=== PATIENT | female | born 1930 | race Caucasian/White ===

== ENCOUNTER 2016-09-30 13:16 | Emergency (ER) | payer OTHER, BC ==
[~2016-09-30] VITALS: Ht 162.6 cm; Wt 71.8 kg
[~2016-09-30 13:16] MED LIST: ACID REDUCER150 MG PO; ADULT LOW DOSE81 M1 PO; AMARYL2 MG PO; Ascorbic Acid,Ester- PO; BONIVA150 MG PO; CALCIUM MAGNES1 EACH PO; CATAPRES0.1 MG PO; COLACE100 MG PO; Colace PO; DEXTROSE 50%50 ML IV; DIOVAN40 MG PO; DIOVAN80 MG PO; DOCUSATE SODIU100 MG PO; Dulcolax PR; ECOTRIN325 MG PO; Ecotrin PO; FLEXERIL5 MG PO; FORTAMET500 M1 PO; Folvite PO; GLUCAGEN1 MG IM/SC; GLUCOPHAGE500 MG PO; Heparin Sodium SC; KEFLEX500 MG PO; LIDODERM 5% P1 PATCH TD; LOPRESSOR25 MG PO; Levaquin PO; MINTOX SUSPENS355 ML PO; MIRALAX255 GM PO; Milk Of Magnesia,MOM PO; NORVASC10 MG PO; NOVOLOG PE100 UNITS/ SC; ONGLYZA2.5 MG PO; Oyst-Cal D, Oscal W/ PO; PAXIL20 MG PO; PAXIL30 MG PO; PERCOCET 5/31 TABLET PO; PERIDEX1 ML MM; PLAVIX75 MG PO; PRESERVISION S1 EACH PO; PROMETHAZINE HC25 M1 PO; PROTONIX40 MG PO; PROVENTIL,2.5 MG/3 M IH; Paxil PO; ROBITUSSIN AC,T10 ML PO; ROBITUSSIN DM118 ML PO; SIMVASTATIN10 MG PO; SIMVASTATIN40 M1 PO; SINGULAIR10 MG PO; SORE THROAT SP177 M1 MM; THERAGRAN1 TABLET PO; TRAMADOL HCL50 MG PO; TYLENOL EXTRA500 MG PO; TYLENOL REGULA325 MG PO; TYLENOL WITH C1 EACH PO; Tylenol Regular Stre PO; VITAMIN D31000 UNIT PO; Zocor PO
[2016-09-30 14:20] LABS: ADD MIUA? YES; BILIRUBIN NEGATIVE; BLOOD NEGATIVE; COLOR YELLOW ((YELLOW)); GLUCOSE (STRIP) NEGATIVE; KETONES NEGATIVE; LEUKOCYTES TRACE; NITRITE NEGATIVE; PROTEIN (STRIP) 30; SPECIFIC GRAVITY 1.021 (1.000-1.030); UROBILINOGEN 0.2 MG/DL (0.2-1.0)
[2016-09-30 14:21] LABS: HEMATOCRIT 36.2 % (36.0-46.0); MCH 33.7 PG (29.0-34.0); MCV 99.2 FL (83-99); MEAN PLAT.VOLUME 9.4 uM^3 (9.5-12.4); PLATELET COUNT 207 K/uL (156-360); RBC DIS.WIDTH-CV 13.4 % (11.8-14.6); RBC DIS.WIDTH-SD 46.4 % (39-53); RED BLOOD COUNT 3.65 M/uL (3.80-5.20); WHITE BLOOD COUNT 6.5 K/uL (4.1-10.2)
[2016-09-30 14:29] LABS: CHLORIDE 108 mEq/L (99-109); POTASSIUM 5.2 mEq/L (3.7-5.4); SODIUM 141 mEq/L (136-147)
[2016-09-30 14:30] LABS: GLUCOSE 157 mg/dL (70-99)
[2016-09-30 14:32] LABS: ANION GAP 6 MEQ/L (2-14)
[2016-09-30 14:34] LABS: GFR ESTIMATE (CALCULATED) 50 mL/min/
[2016-09-30 14:35] LABS: UREA NITROGEN (BUN) 24 mg/dL (9-23)
[2016-09-30 14:40] LABS: BACTERIA RARE /HPF; CASTS NONE SEEN /LPF; CRYSTALS NONE SEEN; EPITHELIAL CELLS RARE /HPF; MUCUS NONE SEEN /LPF; RED BLOOD CELLS NONE SEEN /HPF (0-5); UCUL ADDED? NO; WHITE BLOOD CELLS 0-5 /HPF (0-5)
[2016-09-30] MEDS ORDERED: CIPRO500 MG PO (15:23)
[2016-09-30 16:43] VITALS: BP 167/42
== END 2016-09-30 16:56 ==
LOC: EME 13:16
DX: N39.0 Urinary tract infection, site not specified (principal); R53.1 Weakness; E11.9 Type 2 diabetes mellitus without complications; E78.5 Hyperlipidemia, unspecified; I10 Essential (primary) hypertension; Z86.73 Personal history of transient ischemic attack (TIA), and cerebral infarction without residual deficits; Z88.1 Allergy status to other antibiotic agents; Z88.2 Allergy status to sulfonamides
CPT/HCPCS: 70450; 71020; 80048; 81003; 85027; 99281; 99284

== ENCOUNTER 2017-04-02 23:37 | Emergency (ER) | payer OTHER, BC ==
[~2017-04-02] VITALS: Ht 160 cm; Wt 78.0 kg
[~2017-04-02 23:37] MED LIST changes: +CIPRO500 MG PO
[2017-04-03 02:57] VITALS: BP 160/59
== END 2017-04-03 02:58 ==
LOC: EME → EDBD 23:37 → EME 23:37
DX: M54.5 Low back pain (principal); W01.0XXA Fall on same level from slipping, tripping and stumbling without subsequent striking against object, initial encounter; Y92.122 Bedroom in nursing home as the place of occurrence of the external cause; I69.354 Hemiplegia and hemiparesis following cerebral infarction affecting left non-dominant side; I10 Essential (primary) hypertension; E11.9 Type 2 diabetes mellitus without complications; E78.5 Hyperlipidemia, unspecified; K21.9 Gastro-esophageal reflux disease without esophagitis; J45.909 Unspecified asthma, uncomplicated; F41.9 Anxiety disorder, unspecified; F32.9 Major depressive disorder, single episode, unspecified
CPT/HCPCS: 72100; 72170; 99281; 99284